=== PATIENT | male | born 1970 | race Two or more races ===

== ENCOUNTER 2017-07-10 15:50 | Emergency (ER) | payer SELFPAY ==
[2017-07-10] MEDS ORDERED: KETOROLAC TROMETHAMINE 60 MG/2 ML SDV IM ONE (17:37)
[2017-07-10] MEDS ORDERED: DEXAMETHASONE SOD PHOS INJ 10 MG/1 ML VIAL IM ONE (17:37)
--- NOTE | 2017-07-10 17:43 | ER Document Report ---
ED Neck/Back Problem - General Chief Complaint: Leg Pain Stated Complaint: RIGHT LEG PAIN Time Seen by Provider: 07/10/17 17:26 Mode of Arrival: Ambulatory Information source: Patient Notes: 47-year-old male presents to ED for complaint of pain from his left buttocks down his left thigh down around to the side of his left knee down to his foot. He states he has had this before but this time it started on Thursday and has progressively gotten worse each day. He denies any recent fall or injuries. He does not smoke or drink and does not been on any long trips he has been driving from us by an hour and a half [address] to work daily and works as a [employer] - [employer] Onset: - Thursday Onset: Gradual Timing: Waxing and waning Quality of pain: Sharp Severity: Moderate Pain Level: 4 Recent injury: No Associated symptoms: Radiation to leg, Lower back pain. denies: Constipation, Fever, Incontinence, Motor loss, Numbness/tingling, Sensory loss, Unable to urinate Exacerbated by: Movement of trunk Relieved by: Nothing Similar symptoms previously: Yes Recently seen / treated by doctor: No - Related Data Allergies/Adverse Reactions: No Known Allergies Allergy (Verified 02/21/13 13:23) Past Medical History - General Information source: Patient - Social History Smoking Status: Never Smoker Cigarette use (# per day): No Chew tobacco use (# tins/day): No Smoking Education Provided: No Frequency of alcohol use: Rare Drug Abuse: None Occupation: [employer] Lives with: Family Family History: Arthritis, DM, Hypertension Patient has suicidal ideation: No Patient has homicidal ideation: No - Past Medical History Cardiac Medical History: Reports: None Pulmonary Medical History: Reports: None EENT Medical History: Reports: None Neurological Medical History: Reports: None Endocrine Medical History: Reports: None Renal/ Medical History: Reports: None Malignancy Medical History: Reports None GI Medical History: Reports: None Musculoskeltal Medical History: Reports Hx Arthritis, Reports Hx Musculoskeletal Trauma Skin Medical History: Reports None Psychiatric Medical History: Reports: None Traumatic Medical History: Reports: None Infectious Medical History: Reports: None Past Surgical History: Reports: Hx Orthopedic Surgery - Repair of tendons in his left arm from an injury at work - Immunizations Immunizations up to date: No Hx Diphtheria, Pertussis, Tetanus Vaccination: No Review of Systems - Review of Systems Constitutional: No symptoms reported EENT: No symptoms reported Cardiovascular: No symptoms reported Respiratory: No symptoms reported Gastrointestinal: No symptoms reported Genitourinary: No symptoms reported Male Genitourinary: No symptoms reported Musculoskeletal: Back pain, Muscle pain. denies: Muscle stiffness, Neck pain Skin: No symptoms reported Hematologic/Lymphatic: No symptoms reported Neurological/Psychological: No symptoms reported -: Yes All other systems reviewed and negative Physical Exam - Vital signs Vitals: Temp Pulse Resp BP Pulse Ox 98.5 F 89 18 141/98 H 97 07/10/17 16:13 07/10/17 16:13 07/10/17 16:13 07/10/17 16:13 07/10/17 16:13 Interpretation: Normal - General General appearance: Appears well, Alert - HEENT Head: Normocephalic, Atraumatic Eyes: Normal Pupils: PERRL - Respiratory Respiratory status: No respiratory distress Chest status: Nontender Breath sounds: Normal Chest palpation: Normal - Cardiovascular Rhythm: Regular Heart sounds: Normal auscultation Murmur: No - Abdominal Inspection: Normal Distension: No distension Bowel sounds: Normal Tenderness: Nontender Organomegaly: No organomegaly - Back Back: Normal, Tender. No: Deformity/step-off, CVA tenderness, Vertebra tenderness, Scars, Scoliosis, Wounds - Extremities General upper extremity: Normal inspection, Nontender, Normal color, Normal ROM , Normal temperature General lower extremity: Normal inspection, Nontender, Normal color, Normal ROM , Normal temperature, Normal weight bearing. No: Juan J's sign Thigh: Tender - Front of thigh Knee: Pain with ROM, Patellar tendon intact, Other - Lateral knee and lateral calf pain. No: Dislocation, Drawer's test instability, Ecchymosis, Instability , Joint effusion, Laceration, Laxity with valgus stress, Laxity with varus stress, Popliteal fossa tender, Tender joint line, Unable to bear weight - Neurological Neuro grossly intact: Yes Cognition: Normal Orientation: AAOx4 [place] Coma Scale Eye Opening: Spontaneous Vignesh Coma Scale Verbal: Oriented Vignesh Coma Scale Motor: Obeys Commands [place] Coma Scale Total: 15 Speech: Normal Motor strength normal: LUE, RUE, LLE, RLE Sensory: Normal - Psychological Associated symptoms: Normal affect, Normal mood - Skin Skin Temperature: Warm Skin Moisture: Dry Skin Color: Normal Course - Re-evaluation Re-evalutation: 07/10/17 22:11 Discussed x-ray and venous Doppler with patient. Both were negative. Patient was discharged home to follow-up with his primary doctor after he received a dose of Decadron and Toradol for his pain. - Vital Signs Vital signs: Temp Pulse Resp BP Pulse Ox 98.3 F 67 18 151/85 H 97 07/10/17 19:41 07/10/17 19:41 07/10/17 19:41 07/10/17 19:41 07/10/17 19:41 - Diagnostic Test Radiology reviewed: Image reviewed, Reports reviewed Discharge - Discharge Clinical Impression: Right leg pain Sciatica Qualifiers: Laterality: right Qualified Code(s): M54.31 - Sciatica, right side Condition: Stable Disposition: HOME, SELF-CARE Instructions: Family Physicians / Practices Additional Instructions: Sciatica Your symptoms suggest "sciatica." The pain of sciatica typically radiates down the leg. Numbness in the foot or calf may also occur. Sciatica is caused by irritation of the sciatic nerve or its branches. The irritation can be due to a herniated disk in the spine, swelling and inflammation in the muscles surrounding the sciatic nerve, or direct injury of the nerve itself. Most cases of sciatica will resolve with medical treatment. Bed rest is usually recommended initially. Surgery is only necessary when the condition will not improve with rest and antiinflammatory medication. Muscle relaxers are often given if muscle soreness is present. A CAT scan of the back may be performed if a herniated disk is suspected. Re-examination is necessary if you develop increasing numbness, localized weakness in the foot or ankle, or if the pain does not respond to rest. Toradol Injection You have been given an injection of ketorolac tromethamine (Toradol). This is an excellent, safe drug for pain control. It also has potent antiinflammatory action. You should have significant pain relief within about one hour. Toradol is not addicting and is non-sedating. It does not interfere with driving or work. Call or return if you develop itching, hives, shortness of breath, or rash. STEROID MEDICATION: You have been given an injection of medicine of the cortisone/steroid class. This medication is used to control inflammation or allergy. It is often continued as a pill for a short period of time, until the acute process subsides. There are usually no side effects from short-term use of cortisone-like medications. Some persons feel an increased sense of well-being and are not sleepy at bedtime. Long-term use of cortisone medications is best avoided, unless required for a severe condition. If your condition does not remit, or relapses after the course of corticosteroid medication, you should consult your physician. FOLLOW-UP CARE: If you have been referred to a physician for follow-up care, call the physician s office for an appointment as you were instructed or within the next two days. If you experience worsening or a significant change in your symptoms, notify the physician immediately or return to the Emergency Department at any time for re-evaluation. Forms: Elevated Blood Pressure
--- NOTE | 2017-07-10 18:14 | RADIOLOGY REPORT (SQ) ---
EXAM DESCRIPTION: L SPINE WHOLE COMPLETED DATE/TIME: 07/10/2017 6:01 pm REASON FOR STUDY: low back pain radiating to right leg COMPARISON: None. NUMBER OF VIEWS: Five views including obliques. TECHNIQUE: AP, lateral, oblique, and sacral radiographic images acquired of the lumbar spine. LIMITATIONS: None. FINDINGS: MINERALIZATION: Normal. SEGMENTATION: Normal. No transitional anatomy. ALIGNMENT: Normal. VERTEBRAE: Maintained height. No fracture or worrisome bone lesion. DISCS: There is mild narrowing of the L3-4 and L4-5 disc spaces. POSTERIOR ELEMENTS: Pedicles and facets are intact. No pars defect or posterior arch defects. HARDWARE: None in the spine. PARASPINAL SOFT TISSUES: Normal. PELVIS: Intact as visualized. No fractures or worrisome bone lesions. SI joints intact. OTHER: No other significant finding. IMPRESSION: Mild degenerative disc changes with no acute osseous abnormality. TECHNICAL DOCUMENTATION: JOB ID: [id number] [employer]- All Rights Reserved
[2017-07-10 19:42] VITALS: BP 151/85
--- NOTE | 2017-07-11 10:32 | XCELERA REPORT ---
[address] [address] Lower Extremity Venous Evaluation Name: ANTIONE SLADE Age: 47 yrs Gender: Male : 1970 Patient Status: Emergency Patient Location: ER Study Date: 07/10/2017 07:11 PM Procedure: Color flow and duplex imaging of the veins of the right lower extremity as well as the left Common Femoral vein. Reason For Study: Right leg pain started Thursday and progressively ge Ordering Physician: GLADIS COLEY Performed By: Ophelia Delvalle Right Sided Venous Evaluation Normal vessel filling wall to wall, compression and augmentation as well as Colour flow down to the infrageniculate veins. Left Sided Venous Evaluation The left common femoral vein is fully compressible. Spontaneous and phasic flow is present in the left common femoral vein. Interpretation Summary No duplex evidence of DVT or obstruction in the right lower extremity nor in the left Common Femoral vein. : GLADIS COLEY > Navjot Oscar
== END 2017-07-10 19:41 | disposition home or self-care (01) ==
LOC: ER 15:50
DX: M54.41 Lumbago with sciatica, right side (principal)
CPT/HCPCS: 99284; 96372; 96374; 93971 ×2; 72110; J1885; J1100

== ENCOUNTER 2018-12-17 15:52 | Emergency (ER) | payer SELFPAY ==
[2018-12-17 15:58] VITALS: BP 146/108
[2018-12-17] MEDS ORDERED: KETOROLAC TROMETHAMINE 60 MG/2 ML SDV IM ONE (16:16)
[2018-12-17] MEDS ORDERED: LIDOCAINE 5% (700 MG) TRANSDERMAL ADH..PATCH TP ONE (16:16)
[2018-12-17] MEDS ORDERED: OXYCODONE-ACETAMINOPHEN 5-325 MG TABLET PO ONE (16:16)
--- NOTE | 2018-12-17 16:19 | ER Document Report ---
HPI - HPI Patient complains to provider of: Back pain Time Seen by Provider: 12/17/18 16:03 Onset: Last week Onset/Duration: Persistent Quality of pain: Achy Pain Level: 3 Context: Vision presents complaining of low back pain for the past week. Patient denies any trauma. Patient does report a previous history of sciatica. Patient denies any fever, urinary retention or incontinence. Associated Symptoms: Other - Low back pain. denies: Fever, Headache Exacerbated by: Movement Relieved by: Denies Similar symptoms previously: Yes Recently seen / treated by doctor: No - ROS ROS below otherwise negative: Yes Systems Reviewed and Negative: Yes All other systems reviewed and negative - CONSTITUTIONAL Constitutional: DENIES: Fever, Chills - NEURO Neurology: DENIES: Weakness - GASTROINTESTINAL Gastrointestinal: DENIES: Nausea - MUSCULOSKELETAL Musculoskeletal: REPORTS: Extremity pain - right leg - DERM Skin Color: Normal Skin Problems: None Past Medical History - General Information source: Patient - Social History Smoking Status: Never Smoker Drug Abuse: None Occupation: construction Lives with: Family Family History: Arthritis, DM, Hypertension Patient has suicidal ideation: No Patient has homicidal ideation: No Renal/ Medical History: Denies: Hx Peritoneal Dialysis Musculoskeletal Medical History: Reports Hx Arthritis, Reports Hx Musculoskeletal Trauma Past Surgical History: Reports: Hx Orthopedic Surgery - Repair of tendons in his left arm from an injury at work - Immunizations Immunizations up to date: No Hx Diphtheria, Pertussis, Tetanus Vaccination: No Vertical Provider Document - CONSTITUTIONAL Agree With Documented VS: Yes Exam Limitations: No Limitations General Appearance: WD/WN, No Apparent Distress, Obese Notes: PHYSICAL EXAMINATION: GENERAL: Well-appearing, well-nourished and in no acute distress. HEAD: Atraumatic, normocephalic. EYES: sclera clear, anicteric, conjunctiva are normal. ENT: nares patent, Moist mucous membranes. NECK: Normal range of motion, supple no lymphadenopathy LUNGS: respirations unlabored HEART: Regular rate and rhythm without murmurs EXTREMITIES: Normal range of motion, no pitting or edema. No cyanosis. Gait normal, pt ambulates without difficulty BACK: L lower lumbar midline tenderness, right SI joint tenderness, lumbar paraspinal tenderness, no deformities or step-offs. No CVA tenderness. NEUROLOGICAL: Cranial nerves grossly intact. Normal speech, normal gait. No saddle anesthesia. PSYCH: Normal mood, normal affect. SKIN: Warm, Dry, normal turgor, no rashes or lesions noted. Course - Re-evaluation Re-evalutation: 12/17/18 16:17 The patient presents with low back pain without signs of spinal cord compression, cauda equina syndrome, infection, aneurysm, or other serious etiology. The patient is neurologically intact. Given the extremely risk of these diagnoses further testing and evaluation for these possibilities does not appear to be indicated at this time. Patient has been instructed to return if the symptoms worsen or change in any way. - Vital Signs Vital signs: Temp Pulse Resp BP Pulse Ox 98.9 F 108 H 16 146/108 H 97 12/17/18 15:57 12/17/18 15:57 12/17/18 15:57 12/17/18 15:57 12/17/18 15:57 Discharge - Discharge Clinical Impression: Sciatica Qualifiers: Laterality: right Qualified Code(s): M54.31 - Sciatica, right side Condition: Stable Disposition: HOME, SELF-CARE Instructions: Antihistamines ([facility]), Muscle Relaxers ([facility]), Sciatica ([facility]) Additional Instructions: Return immediately for any new or worsening symptoms Followup with your primary care provider, call tomorrow to make a followup appointment Follow-up with an orthopedic child protective services specialist for further evaluation Prescriptions: Cyclobenzaprine HCl [Flexeril 10 Mg Tablet] 10 mg PO TID #15 tablet Naproxen [Naprosyn 250 Nmg Tablet] 1 tab PO BID #14 tablet Forms: Return to Work Referrals: [facility] [Provider Group] - Follow up in 3-5 days
== END 2018-12-17 16:46 | disposition home or self-care (01) ==
LOC: ER 15:52
DX: M54.31 Sciatica, right side (principal); M54.9 Dorsalgia, unspecified; M54.5 Low back pain; M79.604 Pain in right leg
CPT/HCPCS: 99283; 96374; J1885

== ENCOUNTER 2020-05-23 20:20 | Emergency (ER) | payer SELFPAY ==
--- NOTE | 2020-05-23 20:39 | ER Document Report ---
ED Medical Screen (RME) - General Chief Complaint: STD Exposure Stated Complaint: STD EXPOSURE Time Seen by Provider: 05/23/20 20:30 Mode of Arrival: Ambulatory Information source: Patient Notes: 49-year-old male presented to ED for sores that look like lacerations to his penis for the last 3 months. states he slipped himself up in his zipper about 3 months ago and this is been coming and going since then. states he is not circumcised. She states that she does have a history of genital herpes and she did discuss it with him before they got together and she does not know if this is genital herpes. He states he was that he did have a UTI symptoms last week with blood coming out of the penis told him to drink cranberry juice and that has really been relieved. He denies any discharge from the penis - HPI Onset: Other - Off and on for 3 months Onset/Duration: Intermittent Quality of pain: Burning, Sharp Severity: Moderate Pain Level: 4 Associated Symptoms: Other - Pain and pain Exacerbated by: Denies Relieved by: Denies Similar symptoms previously: Yes Recently seen / treated by doctor: No - Related Data Smoking: Non-smoker, Secondhand Drug Abuse: None Allergies/Adverse Reactions: No Known Allergies Allergy (Verified 12/17/18 15:55) Past Medical History - General Information source: Patient - Social History Cigarette use (# per day): Yes Frequency of alcohol use: None Drug Abuse: None Lives with: Family Family history: Reviewed & Not Pertinent - Medical History Medical History: Negative - Past Medical History Cardiac Medical History: Reports: None Pulmonary Medical History: Reports: None EENT Medical History: Reports: None Neurological Medical History: Reports: None Renal/ Medical History: Reports: None Malignancy Medical History: Reports None GI Medical History: Reports: None Musculoskeltal Medical History: Reports Hx Arthritis, Reports Hx Musculoskeletal Trauma Skin Medical History: Reports None Psychiatric Medical History: Reports: None Traumatic Medical History: Reports: None Infectious Medical History: Reports: None Past Surgical History: Reports: Hx Orthopedic Surgery - Repair of tendons in his left arm from an injury at work - Immunizations Immunizations up to date: No Hx Diphtheria, Pertussis, Tetanus Vaccination: No
[2020-05-23 21:23] LABS: APPEARANCE,URINE CLOUDY; BILIRUBIN,URINE NEGATIVE (NEGATIVE); COLOR,URINE YELLOW; GLUCOSE, URINE >=500 mg/dL (NEGATIVE); KETONES,URINE NEGATIVE (NEGATIVE); LEUKOCYTE ESTERASE,URINE LARGE (NEGATIVE); NITRITE,URINE POSITIVE (NEGATIVE); PROTEIN,URINE 100 mg/dL (NEGATIVE); URINE SPECIFIC GRAVITY 1.026; UROBILINOGEN,URINE NEGATIVE mg/dL (<2.0)
[2020-05-23 22:43] LABS: CHLAM PCR NOT DETECTED (NOT DETECT)
[2020-05-24] MEDS ORDERED: SULFAMETHOXAZOLE/TRIMETHOPRIM 800-160 MG TABLET PO ONE
[2020-05-24] MEDS ORDERED: CLOTRIMAZOLE 1% CREAM 15 GM TP ONE (00:02)
--- NOTE | 2020-05-24 00:09 | ER Document Report ---
ED General - General Chief Complaint: Penile Problem Stated Complaint: STD EXPOSURE Time Seen by Provider: 05/23/20 20:30 Primary Care Provider: [facility] [Provider Group] - Follow up as needed [facility] [Provider Group] - Follow up as needed NICHOLAS GUTIERREZ MD [[employer]] - Follow up as needed Mode of Arrival: Ambulatory - [facility] Notes: 49-year-old male no significant past medical history presents with penile pain and dysuria. Patient says that pain is been for approximately 3 months around the outside of penis, thinks it started shortly after he zipped his penis and his pants by accident. Has not seen a doctor for current symptoms. Patient also has had dysuria hematuria and frequency over the past week which he has not sought medical care about either. Patient's has genital herpes and they are concerned that this is the cause of his symptoms. Patient denies any fever, flank pain, vomiting, prior episodes, diabetes history, immune compromise history, difficulty reducing or replacing his foreskin, difficulty urinating, discharge from urethra - Related Data Allergies/Adverse Reactions: No Known Allergies Allergy (Verified 12/17/18 15:55) Past Medical History - General Information source: Patient, Relative - Social History Smoking Status: Never Smoker Cigarette use (# per day): Yes Frequency of alcohol use: None Drug Abuse: None Lives with: Family Family History: Arthritis, DM, Hypertension Patient has homicidal ideation: No - Medical History Medical History: Negative - Past Medical History Cardiac Medical History: Reports: None Pulmonary Medical History: Reports: None EENT Medical History: Reports: None Neurological Medical History: Reports: None Renal/ Medical History: Reports: None Malignancy Medical History: Reports None GI Medical History: Reports: None Musculoskeletal Medical History: Reports Hx Arthritis, Reports Hx Musculoskeletal Trauma Skin Medical History: Reports None Psychiatric Medical History: Reports: None Traumatic Medical History: Reports: None Infectious Medical History: Reports: None Past Surgical History: Reports: Hx Orthopedic Surgery - Repair of tendons in his left arm from an injury at work - Immunizations Immunizations up to date: No Hx Diphtheria, Pertussis, Tetanus Vaccination: No Review of Systems - Review of Systems Notes: REVIEW OF SYSTEMS: CONSTITUTIONAL : Denies fever, chills, or sweats. EENT: Denies recent cold/sinus symptoms, denies throat pain CARDIOVASCULAR: Denies chest pain, [place] RESPIRATORY: Denies cough, denies shortness of breath. GASTROINTESTINAL: Denies abdominal pain, nausea/vomiting. GENITOURINARY: Denies difficulty urinating, +painful urination. MUSCULOSKELETAL: Denies neck pain, back pain. SKIN: + rash or skin lesions. HEMATOLOGIC : Denies easy bruising or bleeding. LYMPHATIC: Denies swollen, enlarged glands. NEUROLOGICAL: Denies headache, denies change in gait. PSYCHIATRIC: Denies anxiety or stress or depression. Physical Exam - Vital signs Vitals: Temp Pulse Resp BP Pulse Ox 99.3 F 109 H 18 143/89 H 99 05/23/20 20:32 05/23/20 20:32 05/23/20 20:32 05/23/20 20:32 05/23/20 20:32 - Notes Notes: PHYSICAL EXAMINATION: GENERAL: Well-appearing, well-nourished and in no acute distress. HEAD: Atraumatic, normocephalic. EYES: Pupils equal round and appropriate constriction, sclera anicteric, conjunctiva are normal. ENT: nares patent, dry mucous membranes. NECK: Normal range of motion, supple without lymphadenopathy LUNGS: Breath sounds clear to auscultation bilaterally and equal. No wheezes rales or rhonchi. HEART: Regular rate and rhythm without murmurs ABDOMEN: Soft, nontender, no guarding, no masses, no CVAT PELVIC: Uncircumcised penis, mild diffuse edema and maceration of mucosa of penis and foreskin with scant clear/cloudy moisture, foreskin easily retracted and replaced, no urethral discharge EXTREMITIES: Normal range of motion, no pitting or edema. No cyanosis. NEUROLOGICAL: Awake, alert, conversing appropriately, moves all extremities spontaneously. PSYCH: Normal mood, normal affect. SKIN: Warm, Dry, normal turgor, no rashes or lesions noted. Exam chaperoned by DENNIS Dumont Course - Re-evaluation Re-evalutation: 05/24/20 01:09 Patient's exam concerning for balanoposthitis likely fungal given very mild erythema but significant skin maceration and friability. No phimosis or paraphimosis. Patient also presents with urinary symptoms and UA is positive for UTI. Given presence of 2 new infections and no prior history I obtained an Accu-Chek which showed fingerstick of 296. Patient has no prior history of diabetes. Patient has no symptoms of DKA, will assess anion gap and hydrate and educate patient and DC with close PCP and urology follow-up and return precautions. 05/24/20 03:28 No elevated anion gap, patient hydrated, ordered first dose of metformin in ED. Patient ready for discharge with close PCP follow-up. Diabetes education and return to ED precautions given. 05/24/20 04:56 Patient now febrile and now endorsing bilateral flank pain, will change antibiotics to cover pyelonephritis. No signs of nephrolithiasis. Given concern for patient compliance with 4 times daily dosing of Keflex and 14 days of Bactrim I will give Cipro. - Vital Signs Vital signs: Temp Pulse Resp BP Pulse Ox 101.4 F H 99 20 143/83 H 97 05/24/20 04:39 05/24/20 04:39 05/24/20 04:39 05/24/20 04:39 05/24/20 04:39 - Laboratory Result Diagrams: 05/24/20 02:30 05/24/20 02:30 Laboratory results interpreted by me: 05/23/20 05/24/20 05/24/20 20:50 00:26 02:30 Seg Neutrophils % 78.1 H Sodium Glucose POC Glucose 296 H Urine Protein 100 H Urine Glucose (UA) >=500 H Urine Blood SMALL H Urine Nitrite POSITIVE H Ur Leukocyte Esterase LARGE H 05/24/20 02:30 Seg Neutrophils % Sodium 132.8 L Glucose 302 H POC Glucose Urine Protein Urine Glucose (UA) Urine Blood Urine Nitrite Ur Leukocyte Esterase Discharge - Discharge Clinical Impression: Balanoposthitis, New onset type 2 diabetes mellitus, Pyelonephritis Disposition: HOME, SELF-CARE Additional Instructions: Diabetes You have an abnormally high blood sugar, suspicious for diabetes. Not all high blood sugar requires long-term treatment. High blood sugar can be due to medications, , or the stress of illness. (These cases are "borderline diabetes.") If the doctor feels your high blood sugar might get better with time, you may not require treatment now. You will be scheduled for further evaluation. It's very important that you follow through. Uncontrolled high blood sugar leads to early heart disease, strokes, nerve damage, eye damage, and kidney damage. All diabetics should follow a diet designed to control the blood sugar. Overweight diabetics should exercise regularly and lose weight. If this is not sufficient to control the blood sugar, pills or insulin shots are necessary. Younger people who develop diabetes almost always require insulin daily. Home testing of blood sugars or urine sugar is required. Diabetic teaching is available to help you figure insulin doses and monitor the blood sugar. Call the physician if there is faintness, excess sleepiness, or very rapid breathing. If hypoglycemia (LOW blood sugar) develops, symptoms are shakiness, weakness, sweating, and confusion. In this case, you should eat or drink something with sugar at once. Balanitis Balanitis is inflammation of the foreskin and glans of the penis. The glans may be tender, red, and covered with discharge. It's caused by growth of bacteria or yeast. The problem is common in diabetic men. Retract the foreskin and wash the area with mild soap (such as Phisoderm) twice daily. Allow to dry a few minutes. Apply the antifungal or antibiotic ointment we've prescribed. It usually takes about a week to heal. If there are frequent or severe episodes, circumcision will prevent further problems. Return if the pain or inflammation are worsening, if you have fever or chills, or if you're unable to urinate. Urinary Tract Infection Your evaluation indicates that you have a urinary tract infection. This is due to germs growing in the bladder. This is a common problem. This infection usually responds quickly to antibiotics. Your antibiotic should be taken exactly as prescribed. Drink plenty of fluids -- three to four quarts a day. Occasionally, a bladder anesthetic will be prescribed to help stop the feeling of urgency until the antibiotic has a chance to clear the infection. This may cause your urine to be dark orange. Certain urine infections require a culture. If the doctor obtained a culture, the results will be back in two days. You should call to see if a change in treatment is needed. A repeat urinalysis after you finish treatment is often recommended. The physician will let you know if further testing is required. Call the doctor if you develop fever, chills, flank pain, inability to urinate, or blood in the urine. You must follow-up with your primary doctor within the next 3 days. See your urologist within 1 week. Return to the emergency department immediately if you have vomiting, trouble breathing, continued fever, inability to move your foresk in, inability to urinate, worsening rash, discharge, or any other worsening or alarming symptoms. Prescriptions: Sulfamethoxazole/Trimethoprim [Bactrim Ds Tablet] 1 tab PO BID #6 tablet Ciprofloxacin HCl [Cipro 500 mg Tablet] 500 mg PO BID 7 Days #14 tablet Clotrimazole 45 gm TP BID 14 Days #1 cream..g. Metformin HCl [Glucophage 500 mg Tablet] 500 mg PO BID #14 tablet Forms: Elevated Blood Pressure Referrals: NICHOLAS GUTIERREZ MD [[facility]] - Follow up as needed [facility] [Provider Group] - Follow up as needed [facility] [Provider Group] - Follow up as needed
[2020-05-24] MEDS ORDERED: CLOTRIMAZOLE 1% CREAM 15 GM ONE (00:27)
[2020-05-24] MEDS ORDERED: NORMAL SALINE 1000 ML 1,000 ML IV PRN (00:36)
[2020-05-24 03:04] LABS: ABSOLUTE LYMPHOCYTES (AUTO) 1.5 10^3/uL (0.5-4.7); ABSOLUTE MONOCYTES (AUTO) 0.8 10^3/uL (0.1-1.4); ABSOLUTE NEUT (AUTO) 8.2 10^3/uL (1.7-8.2); BASOPHILS % (AUTO) 0.3 % (0-2); EOSINOPHILS % (AUTO) 0.2 % (0-6); HEMATOCRIT 41.9 % (37.9-51.0); HEMOGLOBIN 14.4 g/dL (13.5-17.0); LYMPHOCYTES % (AUTO) 14.2 % (13-45); MEAN CORPUSCULAR HEMOGLOBIN 28.6 pg (27.0-33.4); MEAN CORPUSCULAR HGB CONC 34.3 g/dL (32.0-36.0); MEAN CORPUSCULAR VOLUME 83 fl (80-97); MONOCYTES % (AUTO) 7.2 % (3-13); PLATELET COUNT 255 10^3/uL (150-450); RED BLOOD COUNT 5.02 10^6/uL (4.35-5.55); SEGMENTED NEUTROPHILS % (AUTO) 78.1 % (42-78); TOTAL CELLS COUNTED % (AUTO) 100 %; WHITE BLOOD COUNT 10.5 10^3/uL (4.0-10.5)
[2020-05-24 03:15] LABS: ALBUMIN 3.9 g/dL (3.5-5.0); ALKALINE PHOSPHATASE 109 U/L (38-126); ANION GAP 9 (5-19); ASPARTATE AMINO TRANSFERASE 22 U/L (17-59); BILIRUBIN,TOTAL 0.8 mg/dL (0.2-1.3); BLOOD UREA NITROGEN 14 mg/dL (7-20); CALCIUM 9.2 mg/dL (8.4-10.2); CARBON DIOXIDE 25 mmol/L (22-30); CHLORIDE 99 mmol/L (98-107); GLUCOSE 302 mg/dL (75-110); POTASSIUM 4.5 mmol/L (3.6-5.0); TOTAL PROTEIN 7.5 g/dL (6.3-8.2)
[2020-05-24] MEDS ORDERED: METFORMIN HCL 500 MG TABLET PO ONE (03:28)
[2020-05-24 04:40] VITALS: BP 143/83
[2020-05-24] MEDS ORDERED: ACETAMINOPHEN 325 MG TABLET PO ONE (04:54)
[2020-05-24] MEDS ORDERED: CIPROFLOXACIN HCL 500 MG TABLET PO ONE (04:56)
== END 2020-05-24 05:10 | disposition home or self-care (01) ==
LOC: ER 20:20
DX: N47.6 Balanoposthitis (principal); N12 Tubulo-interstitial nephritis, not specified as acute or chronic; R31.9 Hematuria, unspecified; R50.9 Fever, unspecified; E11.9 Type 2 diabetes mellitus without complications
CPT/HCPCS: 99284; 96372; 36415; 87086; 87205; 87070; 87101; 82962; 85025; 87077; 87088; 80053; 81001; 87186; 87491; 87591; J3490; J7030